=== PATIENT | male | born 2000 | race Asian ===

== ENCOUNTER 2021-10-08 11:49 | Emergency (ER) | payer OTHER ==
[~2021-10-08] VITALS: Ht 182.9 cm; Wt 82.1 kg
--- NOTE | 2021-10-08 11:56 | NUR ---
Patient to Tent for evaluation. Report given to Mariam GREENWOOD.
[2021-10-08 11:57] VITALS: BP_SYST 116
--- NOTE | 2021-10-08 12:00 | NUR ---
Pt coming from home ambulatory with steady gait. VSS. A&Ox4. Pt c/o having sore throat, headache, and fever since Tuesday. States he took tylenol at 10am this morning. States his friends have [place] and thinks he might have that. No cheat pain and no sob. Denies n/v. NKA. NO known medical conditions. Pt in tent. Bed in lowest position.
--- NOTE | 2021-10-08 12:20 | NUR ---
Covid swab done and sent to lab.
--- NOTE | 2021-10-08 12:30 | NUR ---
ER at bedside examining patient.
--- NOTE | 2021-10-08 13:43 | NUR ---
Strep swab done and sent to lab.
--- NOTE | 2021-10-08 13:43 | NUR ---
Patient given written and verbal discharge instructions and verbalizes understanding. ER MD discussed with patient the results and treatment provided. Patient in stable condition. ID arm band removed. Patient educated on pain management and to follow up with PMD. Pain Scale 0/10. Opportunity for questions provided and answered. Medication side effect fact sheet provided.
[2021-10-08 13:44] VITALS: BP_SYST 128
--- NOTE | 2021-10-08 14:18 | NUR ---
CALL PLACED TO PT REGARDING TEST RESULTS, INFORMATION GIVEN, PT STATES UNDERSTANDINGS
== END 2021-10-08 13:44 | disposition home or self-care (01) ==
LOC: SED 11:49
DX: B34.9 Viral infection, unspecified (principal); R05.9 Cough, unspecified; R50.9 Fever, unspecified; Z20.822 Contact with and (suspected) exposure to COVID-19
CPT/HCPCS: 36415; 86308-TC; 86403; 87081; 99283